=== PATIENT | male | born 1970 | race Caucasian/White ===

== ENCOUNTER 2019-05-20 12:24 | Emergency (ER) | payer SELFPAY ==
[~2019-05-20] VITALS: Ht 162.6 cm; Wt 90.7 kg
--- NOTE | 2019-05-20 12:27 | NUR ---
CALLED PT FOR TRIAGE, UNABLE TO LOCATE PT AT THIS TIME.
--- NOTE | 2019-05-20 12:32 | NUR ---
CALLED BY DR GUILLEN FOR EXAMINATION, UNABLE TO LOCATE PT IN WAITING ROOM .
--- NOTE | 2019-05-20 12:35 | NUR ---
ER at bedside examining patient.
[2019-05-20] MEDS ORDERED: NACL 0.9% 1,000 ML IV ONE ×2 (12:37→16:30)
--- NOTE | 2019-05-20 13:00 | NUR ---
patient BIB , ambulatory. Patient c/o fever x4 days and loss of appetite and denies nausea. Patient denies any other symptoms. PT AAOx4, history of HTN and is taking medication. pt states controlled. No s/s of acute distress noted. Will continue to monitor.
[2019-05-20 13:25] VITALS: BP_SYST 152
--- NOTE | 2019-05-20 13:30 | NUR ---
patient in bed, AAOx4, resting. no s/s of acute distress noted. will continue to monitor.
[2019-05-20 13:47] LABS: BASOPHILS % (AUTO) 0.4 % (0.0-2.0); EOSINOPHILS % (AUTO) 0.1 % (0.0-4.0); HEMATOCRIT 44.2 % (36-54); HEMOGLOBIN 14.5 g/dL (14.0-18.0); LYMPHOCYTES # (AUTO) 1.1 K/uL (1.0-5.5); LYMPHOCYTES % (AUTO) 14.8 % (20.5-51.5); MEAN CORPUSCULAR HEMOGLOBIN 25 pg (27-31); MEAN CORPUSCULAR HGB CONC 33 % (32-36); MEAN CORPUSCULAR VOLUME 77 fL (79.0-98.0); MONOCYTES # (AUTO) 1.1 K/uL (0.0-1.0); MONOCYTES % (AUTO) 14.2 % (1.7-9.3); NEUTROPHILS # (AUTO) 5.4 K/uL (1.8-7.7); NEUTROPHILS % (AUTO) 70.5 % (40.0-70.0); PLATELET COUNT (AUTO) 126 K/uL (130-430); RED BLOOD CELL COUNT(AUTO) 5.74 MIL/uL (4.2-6.2); RED CELL DISTRIBUTION WIDTH 14.9 % (9.0-15.0); WHITE BLOOD COUNT (AUTO) 7.7 K/uL (4.8-10.8)
--- NOTE | 2019-05-20 14:00 | NUR ---
patient in bed, at bedside. no s/s of acute distress noted. will continue to monitor.
[2019-05-20 14:01] LABS: CALCIUM 7.9 mg/dL (8.4-11.0); CREATININE 0.92 mg/dL (0.55-1.30)
[2019-05-20 14:08] LABS: ALBUMIN 3.1 g/dL (3.4-4.8); TOTAL BILIRUBIN 0.8 mg/dL (0.0-1.0)
[2019-05-20] MEDS ORDERED: NACL 0.9% 2,000 ML IV ONE (14:45)
--- NOTE | 2019-05-20 14:45 | NUR ---
patient in bed, at bedside, no s/s of acute distress noted. will continue to monitor.
[2019-05-20 14:47] LABS: BILIRUBIN,URINE NEGATIVE (NEGATIVE); BLOOD, URINE NEGATIVE (NEGATIVE); CLARITY/URINE CLEAR (CLEAR); COLOR,URINE YELLOW (YELLOW); GLUCOSE,URINE 1+ (NEGATIVE); KETONES,URINE TRACE (NEGATIVE); LEUKOCYTE ESTERASE ,URINE NEGATIVE (NEGATIVE); NITRITE, URINE NEGATIVE (NEGATIVE); PROTEIN URINE TRACE (NEGATIVE)
[2019-05-20 15:07] LABS: RBC,URINE NONE SEEN /HPF (0-3); WBC,URINE 0-3 /HPF (0-3)
[2019-05-20 15:08] LABS: BACTERIA,URINE RARE /HPF (None Seen)
--- NOTE | 2019-05-20 15:43 | NUR ---
patient in bed, no s/s of acute distress noted. will continue to monitor.
--- NOTE | 2019-05-20 16:20 | NUR ---
patient fluids still running. no s/s of acute distress noted. once iv finish, patient to be discharged.
[2019-05-20 17:00] LABS: CALCIUM 7.6 mg/dL (8.4-11.0)
--- NOTE | 2019-05-20 17:00 | NUR ---
IVF started by RN @ 6752, completed @ 1700
[2019-05-20 17:01] LABS: CREATININE 0.89 mg/dL (0.55-1.30)
[2019-05-20 17:05] VITALS: BP_SYST 152
== END 2019-05-20 17:05 | disposition home or self-care (01) ==
LOC: SED 12:24
DX: E87.1 Hypo-osmolality and hyponatremia (principal); E86.0 Dehydration; R05 Cough; R51 Headache; R50.9 Fever, unspecified
CPT/HCPCS: 36415; 80048; 80053; 81000; 85025; 86710; 96360; 96361; 99283; J7030; J7050

== ENCOUNTER 2022-03-03 20:25 | Emergency (ER) | payer MEDICAID, OTHER ==
[~2022-03-03] VITALS: Ht 167.6 cm; Wt 90.7 kg
[2022-03-03 20:30] VITALS: BP_SYST 140
[2022-03-03] MEDS ORDERED: PRED20TA PO ×2 (21:05→21:14)
== END 2022-03-03 22:19 | disposition home or self-care (01) ==
LOC: SED 20:25
DX: G51.0 Bell's palsy (principal); R20.2 Paresthesia of skin; E11.9 Type 2 diabetes mellitus without complications; I10 Essential (primary) hypertension; Z79.899 Other long term (current) drug therapy
CPT/HCPCS: 99283

== ENCOUNTER 2022-09-09 16:17 | Emergency (ER) | payer OTHER ==
[~2022-09-09] VITALS: Ht 160 cm; Wt 81.6 kg
[~2022-09-09 16:17] MED LIST: PRED20TA PO
[2022-09-09 16:40] VITALS: BP_SYST 164
--- NOTE | 2022-09-09 17:30 | NUR ---
Pt brought by self from home, pt presents to ER with R lower back pain radiating to R leg, skin pink and warm, cap refill <3, VSS, respirations even and unlabored, will cont to monitor.
[2022-09-09] MEDS ORDERED: KETOROLAC TROMETHAMINE 60 MG/2 ML VIAL IM ONE (17:45)
--- NOTE | 2022-09-09 19:39 | NUR ---
PATIENT TAKEN TO RADIOLOGY AT THIS TIME
--- NOTE | 2022-09-09 19:42 | NUR ---
PATIENT RETURNED FROM RADIOLOGY AT THIS TIME
--- NOTE | 2022-09-09 19:47 | NUR ---
PATIENT GIVEN IM TORADOL FOR RIGHT SIDED BACK PAIN THAT RADIATES DOWN RIGHT LEG
[2022-09-09] MEDS ORDERED: NAPR-690 PO (21:23)
[2022-09-09 21:32] VITALS: BP_SYST 138
== END 2022-09-09 21:32 | disposition home or self-care (01) ==
LOC: SED 16:17
DX: M54.31 Sciatica, right side (principal); M54.50 Low back pain, unspecified; M79.661 Pain in right lower leg; E11.9 Type 2 diabetes mellitus without complications; I10 Essential (primary) hypertension; Z79.899 Other long term (current) drug therapy
CPT/HCPCS: 99285; 72131; 76376; 96372; J1885